=== PATIENT | male | born 1975 | race Caucasian/White ===

== ENCOUNTER 2024-06-21 23:15 | Emergency (ER) | payer OTHER ==
[~2024-06-21] VITALS: Ht 172.7 cm; Wt 96.6 kg
[2024-06-22] MEDS ORDERED: HYDROMORPHONE 1 MG/1 ML DISP.SYRIN ONE (01:00)
[2024-06-22] MEDS ORDERED: ONDANSETRON 4 MG TAB.RAPDIS ONE (01:01)
[2024-06-22] MEDS: ONDANSETRON 4 MG TAB.RAPDIS PO ONE (01:02)
[2024-06-22] MEDS: HYDROMORPHONE 1 MG/1 ML DISP.SYRIN IM ONE (01:02)
[2024-06-22] MEDS ORDERED: KETO10TA2 PO (02:49)
[2024-06-22 02:58] VITALS: BP 132/88; TEMP 98; O2SAT 99
== END 2024-06-22 03:05 | disposition home or self-care (01) ==
LOC: ER 23:28
DX: S13.4XXA Sprain of ligaments of cervical spine, initial encounter (principal); S00.93XA Contusion of unspecified part of head, initial encounter; M54.50 Low back pain, unspecified; V43.62XA Car passenger injured in collision with other type car in traffic accident, initial encounter; Y93.89 Activity, other specified; Y92.488 Other paved roadways as the place of occurrence of the external cause; Y99.8 Other external cause status
CPT/HCPCS: 99285; 72125; 71045; 96372; 70450; 72131; J1171; Q0162